=== PATIENT | female | born 1995 | race Caucasian/White ===

== ENCOUNTER 2023-08-28 10:13 | Emergency (ER) | payer SELFPAY ==
--- NOTE | 2023-08-28 10:34 | ER ---
Nurse's Notes [facility] Name: Ayde Reza Age: 28 yrs Sex: Female : 1995 Arrival Date: 08/28/2023 Time: 10:13 Bed 12 Private MD: Diagnosis: Dental caries, unspecified Presentation: 08/27 10:22 Chief complaint: Patient states: has abscess on tooth # 15 and 16, has been on iw antibiotics but is still having pain. Coronavirus screen: At this time, the client does not indicate any symptoms associated with coronavirus-19. Ebola Screen: Patient negative for fever greater than or equal to 101.5 degrees Fahrenheit, and additional compatible Ebola Virus Disease symptoms Patient denies exposure to infectious person. Patient denies travel to an Ebola-affected area in the 21 days before illness onset. No symptoms or risks identified at this time. Initial Sepsis Screen: Does the patient meet any 2 criteria? No. Patient's initial sepsis screen is negative. Does the patient have a suspected source of infection? No. Patient's initial sepsis screen is negative. Risk Assessment: Do you want to hurt yourself or someone else? Patient reports no desire to harm self or others. 10:22 Method Of Arrival: Ambulatory iw 10:22 Acuity: RAUL 4 iw 10:22 Onset of symptoms was August 28, 2023. iw Triage Assessment: 10:28 General: Appears in no apparent distress. iw Historical: - Allergies: 10:23 No Known Allergies; iw - Home Meds: 10:23 Hydroxyzine Oral [Active]; iw - PMHx: 10:23 Anxiety; Depressive disorder; iw - PSHx: 10:23 Cholecystectomy; section; iw Screenin:27 [facility] ED Fall Risk Assessment (Adult) Score/Fall Risk Level 0 - 2 = Low Risk. Abuse iw screen: Denies threats or abuse. Denies injuries from another. Nutritional screening: No deficits noted. Tuberculosis screening: No symptoms or risk factors identified. Assessment: 10:27 General: Appears in no apparent distress. Behavior is calm, cooperative. Pain: iw Complains of pain in left cheek and left jaw. Neuro: Level of Consciousness is awake, alert, obeys commands, Oriented to person, place, time, situation, Moves all extremities. Full function. Cardiovascular: Patient's skin is warm and dry. Respiratory: Respiratory effort is even, unlabored, Respiratory pattern is regular. GI: No signs and/or symptoms were reported involving the gastrointestinal system. Derm: Skin is intact, is healthy with good turgor. Musculoskeletal: Range of motion: intact in all extremities. Vital Signs: 10:22 BP 122 / 96; Pulse 91; Resp 16; Temp 97.2; Pulse Ox 100% ; Weight 76.66 kg; Height 5 iw ft. 2 in. ; Pain 6/10; 10:22 Body Mass Index 30.91 (76.66 kg, 157.48 cm) iw 10:22 Pain Scale: Adult iw ED Course: 10:16 Patient arrived in ED. mr 10:19 Dameon Rubin MD is Attending Physician. ec2 10:23 Triage completed. iw 10:24 Arm band placed on. iw 10:27 No provider procedures requiring assistance completed. Patient did not have IV access iw during this emergency room visit. 10:34 Tracee Dickey RN is Primary Nurse. iw Administered Medications: 10:53 Drug: Acetaminophen-Codeine PO (300 mg-30 mg) 1 tablet PO once; RASS on ADMIN: Combtv4, iw Very Agttd3, Agttd2, Rstlss1, AlertClm0, Drwsy-1, Lt Sdtn-2, Mod Sdtn-3, Dp Sdtn-4, UnArsble-5 Route: PO; 10:53 Drug: Clindamycin PO 450 mg PO once Route: PO; iw 10:53 Drug: Ketorolac IM 30 mg IM once Route: IM; Site: left ventrogluteal; iw 10:53 Drug: Viscous Lidocaine Mucous Membrane Liquid (4 %) 10 ml Mucous Membrane once; soak iw gauze in lidocaine, place in the L upper teeth Route: Mucous Membrane; Medication: 10:27 VIS not applicable for this client. iw Outcome: 10:33 Discharge ordered by . ec2 10:58 Patient left the ED. iw Signatures: Rafia Hill, Reg Reg mr Tracee Dickey, RN RN iw Dameon Rubin MD MD ec2 Corrections: (The following items were deleted from the chart) 10:26 10:22 BP 122 / 96; Pulse 103bpm; Resp 16bpm; Pulse Ox 100%; Temp 97.2F; 76.66 kg; iw Height 5 ft. 2 in.; BMI: 30.9; Pain 6/10, Adult; iw
--- NOTE | 2023-08-28 10:34 | EDPHYS ---
Physician Documentation [facility] Name: Ayde Reza Age: 28 yrs Sex: Female : 1995 Arrival Date: 08/28/2023 Time: 10:13 Bed 12 Private MD: ED Physician Dameon Rubin HPI: 08/27 10:30 This 28 yrs old Female presents to ER via Ambulatory with complaints of ec2 Abscess tooth. 10:30 Patient arrives today for left upper dental pain. Patient complaining of pain that has ec2 been progressively getting worse. History of dental infections, previous amoxicillin administration for dental infection. Patient reports increased pain. No fevers or chills, no nausea or vomiting, no other concerns.. Historical: - Allergies: 10:23 No Known Allergies; iw - Home Meds: 10:23 Hydroxyzine Oral [Active]; iw - PMHx: 10:23 Anxiety; Depressive disorder; iw - PSHx: 10:23 Cholecystectomy; section; iw ROS: 10:30 Constitutional: as per hpi ec2 Exam: 10:30 Constitutional: GEN: NAD Head: atraumatic Eyes: EOMI Ears: External ears are normal. ec2 Mouth: Poor dentition noted throughout, left upper teeth with significant caries, erythema at the gumline, TTP. No overlying facial swelling. CV: regular rate LUNGS: no respiratory distress ABD: non-distended SKIN: no evidence of rashes MSK: no evidence of trauma NEURO: moves all extremities equally Vital Signs: 10:22 BP 122 / 96; Pulse 91; Resp 16; Temp 97.2; Pulse Ox 100% ; Weight 76.66 kg; Height 5 iw ft. 2 in. ; Pain 6/10; 10:22 Body Mass Index 30.91 (76.66 kg, 157.48 cm) iw 10:22 Pain Scale: Adult iw MDM: 10:30 Patient medically screened. ec2 10:30 Data reviewed: vital signs. ED course: Patient arrives today for evaluation of left ec2 upper dental pain. Lamination remarkable for HEENT findings as noted above. Will treat the patient for dental infection. Prescribed medication for pain. Discharged home have follow-up with oral surgeon. Return precautions given. Patient otherwise nontoxic-appearing, will defer any more aggressive measures such as CBC or BMP with reassuring vital signs.. Administered Medications: :53 Drug: Acetaminophen-Codeine PO (300 mg-30 mg) 1 tablet PO once; RASS on ADMIN: Combtv4, iw Very Agttd3, Agttd2, Rstlss1, AlertClm0, Drwsy-1, Lt Sdtn-2, Mod Sdtn-3, Dp Sdtn-4, UnArsble-5 Route: PO; :53 Drug: Clindamycin PO 450 mg PO once Route: PO; iw :53 Drug: Ketorolac IM 30 mg IM once Route: IM; Site: left ventrogluteal; iw :53 Drug: Viscous Lidocaine Mucous Membrane Liquid (4 %) 10 ml Mucous Membrane once; soak iw gauze in lidocaine, place in the L upper teeth Route: Mucous Membrane; Disposition Summary: 08/28/23 10:33 Discharge Ordered Notes: Location: Home ec2 Condition: Stable ec2 Diagnosis - Dental caries, unspecified ec2 Followup: ec2 - With: Private Physician - When: - Reason: Re-evaluation by your physician Discharge Instructions: - Discharge Summary Sheet ec2 - Dental Pain ec2 Forms: - Medication Reconciliation Form ec2 - Thank You Letter ec2 - Antibiotic Education ec2 - Prescription Opioid Use ec2 - Patient Portal Instructions ec2 - Leadership Thank You Letter ec2 Prescriptions: - acetaminophen-codeine 300-15 mg Oral tablet - take 1 tablet ORAL route 4 times per day as needed for pain; 15 tablet; ec2 Refills: 0, Product Selection Permitted - Clindamycin HCl 150 mg Oral capsule - take 3 capsule ORAL route every 8 hours for 7 days; 63 capsule; Refills: 0, ec2 Product Selection Permitted Signatures: Tracee Dickey, RN RN iw Dameon Rubin MD MD ec2
[2023-08-28] MEDS ORDERED: LIDOCAINE VISCOUS 2% 10ML ORAL SOLN ONE (10:45)
[2023-08-28] MEDS ORDERED: KETOROLAC 30 MG/ML INJ ONE (10:45)
[2023-08-28] MEDS ORDERED: CODEINE 30MG/APAP 300MG TAB ONE (10:45)
[2023-08-28 17:35] VITALS: BP 122/96; TEMP 97.2; O2SAT 100
== END 2023-08-28 10:58 | disposition home or self-care (01) ==
LOC: ER 10:13
DX: K02.9 Dental caries, unspecified (principal)
CPT/HCPCS: 96372; 99284